=== PATIENT | female | born 1995 | race American Indian/Alaskan Native ===

== ENCOUNTER 2022-02-04 15:48 | Emergency (ER) | payer MEDICAID ==
[2022-02-04 15:52] VITALS: BP 110/82
[2022-02-04] MEDS ORDERED: AMOXICILLIN/K CLAV 875/125MG TAB PO ONE (17:24)
[2022-02-04] MEDS ORDERED: DEXAMETHASONE 4 MG TAB PO ONE (17:24)
[2022-02-04] MEDS ORDERED: ACETAMINOPHEN 325 MG TAB PO ONE (17:25)
[2022-02-04] MEDS ORDERED: KETOROLAC 10 MG TAB PO ONE (17:25)
--- NOTE | 2022-02-04 17:30 | Emergency Department Report ---
ED ENT HPI - General Chief complaint: Medical Clearance Stated complaint: FLU-LIKE SYMPTOMS SINCE FRIDAY Time Seen by Provider: 02/04/22 17:08 Source: patient Mode of arrival: Ambulatory Limitations: No Limitations - History of Present Illness Initial comments: 26 yof with no pmh presents to ed for evaluation of 2-3 day history of intermittent fever, headache, cough, congestion, runny nose, and bodyaches. She denies sob, n/v, dizziness, chest pain. She states that her headache is 9/10 and has been unrelieved by otc medications. MD complaint: sore throat, ear pain -: Gradual, days(s) (2-3) Severity scale (0 -10): 9 Consistency: constant Associated Symptoms: fever, cough, sore throat, rhinorrhea. denies: gum swelling, toothache, pain with swallowing, tinnitus, hearing loss, discharge from ear - Related Data Previous Rx's Medication Instructions Recorded Last Taken Type Amoxicillin/Potassium Clav 1 each PO BID #14 tab 02/04/22 Unknown Rx [Augmentin 875-125 Tablet] Brompheniramine/Pseudoephed/Dm 10 ml PO TID PRN #118 ml 02/04/22 Unknown Rx [Bromfed Dm Cough Syrup] methylPREDNISolone [Medrol 4MG 4 mg PO DAILY #1 pack 02/04/22 Unknown Rx DOSEPAK (21 tabs)] Allergies Allergy/AdvReac Type Severity Reaction Status Date / Time No Known Allergies Allergy Unverified 02/04/22 15:52 ED Dental HPI - General Chief complaint: Medical Clearance Stated complaint: FLU-LIKE SYMPTOMS SINCE FRIDAY Time Seen by Provider: 02/04/22 17:08 Source: patient Mode of arrival: Ambulatory Limitations: No Limitations - Related Data Previous Rx's Medication Instructions Recorded Last Taken Type Amoxicillin/Potassium Clav 1 each PO BID #14 tab 02/04/22 Unknown Rx [Augmentin 875-125 Tablet] Brompheniramine/Pseudoephed/Dm 10 ml PO TID PRN #118 ml 02/04/22 Unknown Rx [Bromfed Dm Cough Syrup] methylPREDNISolone [Medrol 4MG 4 mg PO DAILY #1 pack 02/04/22 Unknown Rx DOSEPAK (21 tabs)] Allergies Allergy/AdvReac Type Severity Reaction Status Date / Time No Known Allergies Allergy Unverified 02/04/22 15:52 ED Review of Systems ROS: Stated complaint: FLU-LIKE SYMPTOMS SINCE FRIDAY Other details as noted in HPI Comment: All other systems reviewed and negative Constitutional: fever. denies: chills, diaphoresis, malaise Eyes: eye pain. denies: eye discharge, vision change ENT: ear pain, throat pain, congestion. denies: dental pain, hearing loss, epistaxis Respiratory: cough. denies: orthopnea, shortness of breath, SOB with exertion, SOB at rest Cardiovascular: denies: chest pain, palpitations, dyspnea on exertion, orthopnea, syncope Endocrine: no symptoms reported Gastrointestinal: denies: abdominal pain, nausea, vomiting, diarrhea, hematemesis, melena Genitourinary: denies: urgency, dysuria, frequency, hematuria, discharge, abnormal menses, dyspareunia Musculoskeletal: myalgia. denies: back pain Skin: denies: rash, lesions Neurological: headache. denies: weakness, numbness, paresthesias, confusion, abnormal gait Psychiatric: denies: anxiety, depression Hematological/Lymphatic: denies: easy bleeding, easy bruising ED Past Medical Hx - Past Medical History Previous Medical History?: Yes Hx Asthma: Yes - Medications Home Medications: Home Medications Medication Instructions Recorded Confirmed Last Taken Type Amoxicillin/Potassium Clav 1 each PO BID #14 tab 02/04/22 Unknown Rx [Augmentin 875-125 Tablet] Brompheniramine/Pseudoephed/Dm 10 ml PO TID PRN #118 ml 02/04/22 Unknown Rx [Bromfed Dm Cough Syrup] methylPREDNISolone [Medrol 4MG 4 mg PO DAILY #1 pack 02/04/22 Unknown Rx DOSEPAK (21 tabs)] ED Physical Exam - General Limitations: No Limitations General appearance: alert, in no apparent distress - Head Head exam: Present: atraumatic, normocephalic - Eye Eye exam: Present: normal appearance. Absent: conjunctival injection - ENT ENT exam: Present: mucous membranes moist, TM's normal bilaterally, normal external ear exam. Absent: normal exam (bilateral nasal mucosal edema with turbinate swelling and purulent drainage noted, tenderness to bilateral maxillary and front sinus areas. ), normal orophraynx (erythema to posterior oropharynx) - Expanded ENT Exam Expanded Mouth exam: Present: normal external inspection, tongue normal. Absent: drooling Throat exam: Positive: tonsillar erythema. Negative: tonsillomegaly, tonsillar exudate, R peritonsillar mass, L peritonsillar mass - Neck Neck exam: Present: normal inspection, lymphadenopathy. Absent: tenderness - Respiratory Respiratory exam: Present: normal lung sounds bilaterally. Absent: respiratory distress, wheezes, rales, rhonchi, stridor - Cardiovascular Cardiovascular Exam: Present: regular rate, normal heart sounds - GI/Abdominal GI/Abdominal exam: Present: soft, normal bowel sounds. Absent: distended, tenderness, guarding, rebound, rigid - Extremities Exam Extremities exam: Present: normal inspection - Back Exam Back exam: Present: normal inspection, tenderness. Absent: CVA tenderness (R), CVA tenderness (L), paraspinal tenderness, vertebral tenderness - Neurological Exam Neurological exam: Present: alert, oriented X3, CN II-XII intact, normal gait - Psychiatric Psychiatric exam: Present: normal mood - Skin Skin exam: Present: warm, dry, intact, normal color ED Course Vital Signs 02/04/22 15:51 Temperature 101.7 F H Pulse Rate 90 Respiratory 16 Rate Blood Pressure 110/82 [Left] O2 Sat by Pulse 99 Oximetry ED Medical Decision Making - Medical Decision Making 26 yof with no pmh presents to ed for evaluation of 2-3 day history of intermittent fever, headache, cough, congestion, runny nose, and bodyaches. She denies sob, n/v, dizziness, chest pain. She states that her headache is 9/10 and has been unrelieved by otc medications. Exam consistent with bacterial sinusitis. Patient has taken a variety of otc medications for cough and sinus without improvement and has had persistent fever. She will be treated with 7 day coarse of augmentin along with steroid pack and cough medication. She was advised to take medications as prescribed and follow up with pcp if no improvement or worsening symptoms. She verbalized understanding of and agreement with plan of care. Critical care attestation.: If time is entered above; I have spent that time in minutes in the direct care of this critically ill patient, excluding procedure time. ED Disposition Clinical Impression: Acute bacterial rhinosinusitis Disposition: HOME / SELF CARE / HOMELESS Is pt being admited?: No Does the pt Need Aspirin: No Condition: Stable Instructions: Antibiotic Medicine, Adult, [id number], Sinusitis, Adult, [id number], How to Perform a Sinus Rinse, [id number] Additional Instructions: Take medications as prescribed. Follow-up with primary care provider for further evaluation. Prescriptions: Amoxicillin/Potassium Clav [Augmentin 875-125 Tablet] 1 each PO BID #14 tab Brompheniramine/Pseudoephed/Dm [Bromfed Dm Cough Syrup] 10 ml PO TID PRN #118 ml PRN Reason: Cough methylPREDNISolone [Medrol 4MG DOSEPAK (21 tabs)] 4 mg PO DAILY #1 pack Referrals: BETH HOPPER MD [Referring] - 3-5 Days Forms: Work/School Release Form(ED) Time of Disposition: 17:30
== END 2022-02-04 19:02 | disposition home or self-care (01) ==
LOC: ED 15:48
DX: J01.90 Acute sinusitis, unspecified (principal); J45.909 Unspecified asthma, uncomplicated
CPT/HCPCS: 99282; J8540